=== PATIENT | female | born 1945 | race Caucasian/White ===

== ENCOUNTER 2016-07-10 09:55 | Day surgery (SDC) | payer MEDICARE, OTHER ==
[2016-07-05 17:06] LABS: BASOPHILS 0.5 %; BASOPHILS ABSOLUTE 0.04 10/3/uL (0.0-0.16); EOSINOPHILS 2.2 %; EOSINOPHILS ABSOLUTE 0.19 10/3/uL (0.0-0.53); HEMOGLOBIN 12.5 g/dL (12.0-16.0); IMMATURE GRANULOCYTES 0.2 %; IMMATURE GRANULOCYTES ABSOLUTE 0.02 10/3/uL (0.0-0.11); LYMPHOCYTES 24.2 %; LYMPHOCYTES ABSOLUTE 2.05 10/3/uL (0.67-4.30); MEAN CORPUSCULAR HEMOGLOB 30.9 pg (26.0-34.0); MEAN CORPUSCULAR VOLUME 90.9 fL (80-100); MONOCYTES 5.7 %; MONOCYTES ABSOLUTE 0.48 10/3/uL (0.21-1.20); NEUTROPHILS 67.2 %; NEUTROPHILS ABSOLUTE 5.69 10/3/uL (2.02-8.40); PLATELET COUNT 246 10/3/uL (150-400); RED CELL COUNT 4.05 10/6/uL (4.0-5.6); WHITE BLOOD CELLS 8.5 10/3/uL (4.5-10.5)
[2016-07-05 17:07] LABS: HEMATOCRIT 36.8 % (36.0-48.0); MANUAL DIFF NO %
[2016-07-05 17:18] LABS: BUN (BLOOD UREA NITROGEN) 12 MG/DL (6-23); CALCIUM, SERUM 8.5 MG/DL (8.5-10.4); CHLORIDE, SERUM 105 MMOL/L (96-112); CO2 (CARBON DIOXIDE) 26 MMOL/L (24-34); CREATININE 0.93 MG/DL (0.55-1.02); GFR AFRICAN AMERICAN 73 ML/MIN (>=60); GFR NON AFRICAN AMERICAN 63 ML/MIN (>=60); GLUCOSE, SERUM 123 MG/DL (60-99); POTASSIUM, SERUM 3.8 MMOL/L (3.5-5.3); SODIUM, SERUM 141 MMOL/L (135-148)
[2016-07-05 19:04] LABS: ASCORBIC ACID (UR NOT ORDER) NEG (NEG); BILIRUBIN, URINE NEGATIVE (NEG); KETONE, URINE NEGATIVE (NEG); LEUKOCYTE ESTERASE(NOT OR MOD (NEG); WBC (NOT ORDERED) (RFLEX) 5 (0-5)
--- NOTE | ~2016-07-10 | OP ---
Record Of [place] [id number] [facility] [place]. [address] NAME: OVI BERGMAN : 47 STATUS : REG [facility]#: [id number] AGE: 70 ADM/REG DATE : 07/10/16 MR#: [id number] REPORT SERV DATE: 07/10/16 DICTATED BY: FRANCESCO SEPULVEDA DATE: 07/10/16 REPORT STATUS : Draft TRANSCRIBED BY: MODL DATE: 07/10/16 DATE OF PROCEDURE: 07/10/2016 PREOPERATIVE DIAGNOSES: Postmenopausal bleeding and endometrial polyp. POSTOPERATIVE DIAGNOSES: Postmenopausal bleeding and endometrial polyp. PROCEDURE: Hysteroscopy with dilation and curettage and polypectomy. CPT code 67654. SURGEON: Francesco Sepulveda M.D. ANESTHESIA: General. ESTIMATED BLOOD LOSS: 20 mL. CRYSTALLOID: 1 L. URINE OUTPUT: 50 mL. DRAINS: None. FINDINGS: Polypoid lesion emanating from the posterior uterine wall on the right side. Some hyperplastic tissue noted within the endometrial cavity, but nothing to suggest overt evidence of malignancy. PATHOLOGY: Endometrial polyp and endometrial curettings. COMPLICATIONS: None. POSTOPERATIVE PLAN: Extubated to PACU. PROCEDURE IN DETAIL: After informed consent was signed, the patient was taken the operating room and placed in dorsal supine position where adequate general anesthesia was administered. She was placed in dorsal lithotomy position in Michel stirrups, and prepped and draped in usual fashion. A Castro catheter was placed. The cervix was grasped and cervix was then dilated, and a hysteroscope was placed through the endocervical canal into the uterus, which was then distended with appropriate media. Findings as above were noted. The hysteroscope was then removed. Using the polyp forceps, the polyp on the posterior aspect of the uterus was removed and then cervix was dilated further, and then four quadrant endometrial curettings were then performed. Excellent hemostasis was noted. The tenaculum was removed. Castro catheter removed as well. Exam under anesthesia was performed. The patient was placed back in dorsal supine position, awakened, extubated, and sent to the PACU in stable condition. Record Of [place] [id number] [facility] [place]. [address] NAME: OVI BERGMAN : 47 STATUS : REG [facility]#: [id number] AGE: 70 ADM/REG DATE : 07/10/16 MR#: [id number] REPORT SERV DATE: 07/10/16 DICTATED BY: FRANCESCO SEPULVEDA DATE: 07/10/16 REPORT STATUS : Draft TRANSCRIBED BY: KAYLAN DATE: 07/10/16 ROSINA/KAYLAN Francesco Sepulveda MD / [id number] CC: MD Blu Hollis Jenny Bradshaw
[~2016-07-10 09:55] MED LIST: PROMETRIUM200 MG PO; T PO; VIVELLE SY0.0375 MG/ TOP
== END 2016-07-10 23:59 | disposition home or self-care (01) ==
LOC: SDC 09:55
PROVIDERS: Obstetrics & Gynecology Gynecology
PROC: 0UDB8ZX Extraction of Endometrium, Via Natural or Artificial Opening Endoscopic, Diagnostic (ICD-10-PCS; 2016-07-10)
PROC: 0UB98ZX Excision of Uterus, Via Natural or Artificial Opening Endoscopic, Diagnostic (ICD-10-PCS; principal; 2016-07-10 13:00)
DX: N84.0 Polyp of corpus uteri (principal); D64.9 Anemia, unspecified; K21.9 Gastro-esophageal reflux disease without esophagitis; M81.0 Age-related osteoporosis without current pathological fracture; Z98.890 Other specified postprocedural states; Z79.899 Other long term (current) drug therapy; Z88.8 Allergy status to other drugs, medicaments and biological substances
CPT/HCPCS: 71020; 80048; 81001; 85025; 87077; 87086; 87186; 88305; 93005; A9270-GY; J0694; J1885; J2250; J2270; J2405; J3010